=== PATIENT | male | born 1960 | race Caucasian/White ===

== ENCOUNTER 2017-10-16 00:38 | Emergency (ER) | payer OTHER ==
[~2017-10-16] VITALS: Ht 170.2 cm; Wt 82.0 kg
[2017-10-16 00:41] VITALS: BP 196/108; PULSE 114; RESP 16; TEMP 98.2; O2SAT 99
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
--- NOTE | 2017-10-16 01:42 | RADRPT ---
EXAM DATE/TIME: 10/16/2017 01:17 [place] COMPARISON: No previous studies available for comparison. INDICATIONS : Rectal foreign body. MEDICAL HISTORY : None. SURGICAL HISTORY : None. ENCOUNTER: Initial ACUITY: 1 day PAIN SCORE: 10/10 LOCATION: Bilateral abdomen. FINDINGS: The bowel gas pattern is nonobstructive. There is a 11 cm cylindrical radiopaque foreign body overlyi ng the expected location of the rectosigmoid colon consistent with the history of rectal foreign body . CONCLUSION: Retained foreign body overlies the expected location of the rectosigmoid colon. Mikie Escobar MD on October 16, 2017 at 1:39 Board Certified Radiologist. This report was verified electronically.
[2017-10-16 02:37] LABS: BASOPHIL # 0.1 TH/MM3 (0-0.2); EOSINOPHIL # 0.2 TH/MM3 (0-0.4); EOSINOPHIL % 2.1 % (0.0-4.0); HEMOGLOBIN 17.9 GM/DL (13.0-17.0); LYMPH % 25.9 % (9.0-44.0); LYMPHOCYTE # 2.5 TH/MM3 (1.0-4.8); MEAN CELL VOLUME 91.7 FL (80.0-100.0); MEAN CORPUSCULAR HEMOGLOBIN 32.8 PG (27.0-34.0); MEAN CORPUSCULAR HGB CONC 35.8 % (32.0-36.0); MEAN PLATELET VOLUME 8.1 FL (7.0-11.0); MONOCYTE # 0.8 TH/MM3 (0-0.9); PLATELET COUNT 210 TH/MM3 (150-450); RED BLOOD COUNT 5.45 MIL/MM3 (4.50-5.90); WHITE BLOOD COUNT 9.5 TH/MM3 (4.0-11.0)
[2017-10-16 02:45] LABS: PROTHROMBIN TIME - PATIENT 10.1 SEC (9.8-11.6)
[2017-10-16 02:51] LABS: BICARBONATE 24.2 MEQ/L (21.0-32.0); CREATININE 0.78 MG/DL (0.60-1.30)
[2017-10-16 02:57] VITALS: RESP 16; O2SAT 98
[2017-10-16] MEDS ORDERED: METF500T PO (03:08)
[2017-10-16] MEDS ORDERED: SODIUM CHLOR 0.9% 1000 ML INJ 1,000 ML IV SCH (03:30)
[2017-10-16] MEDS ORDERED: SODIUM CHLORID 0.9% 500 ML INJ 500 ML IV ONE (03:30)
[2017-10-16 06:50] VITALS: BP 188/88; PULSE 108; RESP 18; O2SAT 100
--- NOTE | 2017-10-16 10:03 | PD.CONS ---
HPI History of Present Illness This is a 57 year old male who presents to the emergency room with complaints of a foreign body in the rectum which occurred shortly before coming to the ER he complains of rectal pain denies any abdominal pain is any nausea or vomiting usually in good health except for some diabetes which is well controlled he does report having had a colonoscopy in the past PFSH Past Medical History Diabetes Past Surgical History None Coded Allergies: minocycline (Unverified Allergy, Severe, 10/16/17) Uncoded Allergies: MINOCIN (Allergy, Unknown, 05/12/03) NKA (Allergy, Unknown, 05/12/03) Medications Current Medications Sodium Chloride 500 ml @ 500 mls/hr BOLUS ONCE IV Last administered on at 03:41; Start 10/16/17 at 03:30; Stop 10/16/17 at 04:29; Status DC Sodium Chloride 1,000 ml @ 70 mls/hr [id number] IV Last administered on at 03:41; Start 10/16/17 at 03:30 Family History Noncontributory Review of Systems Review of systems Patient denies any headache dizziness blurry vision, denies any chest pain shortness of breath cough fever chills, Denies any palpitations or fatigue denies any polyuria dysuria hematuria, denies any numbness tingling or weakness, denies any skin rash pruritus or jaundice, denies any easy bruising or bleeding tendency, denies any recent change in mood GI Exam Vitals I&O Vital Signs Date Time Temp Pulse Resp B/P (MAP) Pulse Ox O2 Delivery O2 Flow Rate FiO2 10/16/17 08:14 10/16/17 06:50 108 18 188/88 (121) 100 Room Air 10/16/17 02:57 16 98 Room Air 10/16/17 00:41 98.2 114 16 196/108 (137) 99 Room Air I/O 10/15/17 10/15/17 10/15/17 10/16/17 10/16/17 10/16/17 07:00 15:00 23:00 07:00 15:00 23:00 Intake Total 500 ml Balance 500 ml Intake IV Total 500 ml Imaging Last Impressions Abdomen X-Ray 10/16/17 0100 Signed Impressions: Service Date/Time: Monday, October 16, 2017 01:17 - CONCLUSION: Retained foreign body overlies the expected location of the rectosigmoid colon. Mikie Escobar MD Laboratory Test 10/16/17 02:16 White Blood Count 9.5 TH/MM3 Red Blood Count 5.45 MIL/MM3 Hemoglobin 17.9 GM/DL Hematocrit 50.0 % Mean Corpuscular Volume 91.7 FL Mean Corpuscular Hemoglobin 32.8 PG Mean Corpuscular Hemoglobin Concent 35.8 % Red Cell Distribution Width 13.0 % Platelet Count 210 TH/MM3 Mean Platelet Volume 8.1 FL Neutrophils (%) (Auto) 63.0 % Lymphocytes (%) (Auto) 25.9 % Monocytes (%) (Auto) 8.0 % Eosinophils (%) (Auto) 2.1 % Basophils (%) (Auto) 1.0 % Neutrophils # (Auto) 6.0 TH/MM3 Lymphocytes # (Auto) 2.5 TH/MM3 Monocytes # (Auto) 0.8 TH/MM3 Eosinophils # (Auto) 0.2 TH/MM3 Basophils # (Auto) 0.1 TH/MM3 CBC Comment DIFF FINAL Differential Comment Prothrombin Time 10.1 SEC Prothromb Time International Ratio 1.0 RATIO Activated Partial Thromboplast Time 25.5 SEC Blood Urea Nitrogen 11 MG/DL Creatinine 0.78 MG/DL Random Glucose 267 MG/DL Calcium Level 8.0 MG/DL Sodium Level 137 MEQ/L Potassium Level 3.7 MEQ/L Chloride Level 103 MEQ/L Carbon Dioxide Level 24.2 MEQ/L Anion Gap 10 MEQ/L Estimat Glomerular Filtration Rate 103 ML/MIN Physical Examination HEENT: Pupils round and reactive to light; normocephalic; atraumatic; no jaundice. Throat is clear. NECK: Neck is supple, no JVD, no lymphadenopathy. CHEST: Chest is clear to auscultation and percussion. CARDIAC: Regular rate and rhythm with no murmur gallop or rubs. ABDOMEN: Soft, nondistended, nontender; no hepatosplenomegaly; bowel sounds are present in all four quadrants. EXTREMITIES: No clubbing, cyanosis, or edema. SKIN: Normal; no rash; no jaundice. MANAGER VALIDATION: No focal deficits; alert and oriented times three. Assessment and Plan Plan Rectal foreign body we will proceed with a flexible sigmoidoscopy Mk Restrepo MD Oct 16, 2017 10:03
--- NOTE | 2017-10-16 10:06 | PD.PROCEDR ---
GI Procedure PROCEDURE PERFORMED Flexible sigmoidoscopy with foreign body extraction INDICATION FOR PROCEDURE Foreign-body in the rectum PROCEDURE: The procedure, risks and benefits were discussed with Mr. Shine and informed consent was obtained. Anesthesia sedated him with Diprivan. He was placed in the left lateral decubitus position. Flexible Sigmoidoscopy: The Pentax videoscope was introduced through the rectum and advanced to the sigmoid. Retroflexion was performed in the rectum. Colonic prep was good FINDINGS: The scope was advanced through the rectum and it was noted that a form body resides there initially I tried to pull it out with the snare this didn't work and so ultimately I used a Malik and we were able to extract the foreign body then inspection of the rectum and sigmoid afterwards revealed no injury and healthy colon retroflexion did reveal internal hemorrhoids examination otherwise unremarkable ESTIMATED BLOOD LOSS: None SPECIMENS REMOVED: None COMPLICATIONS: None IMPRESSION: Rectal foreign body Internal hemorrhoids PLAN: Patient may be discharged from a GI standpoint High-fiber diet Follow-up as needed Mk Restrepo MD Oct 16, 2017 10:06
[2017-10-16 10:40] VITALS: BP 159/80; PULSE 80; RESP 20; TEMP 98; O2SAT 97
[2017-10-16] MEDS ORDERED: PROPOFOL 200 MG/20 ML AMP IV ONE (12:00)
[2017-10-16] MEDS ORDERED: LIDOCAINE HCL 1% PF 5 ML SYRINGE OTHER ONE (12:00)
[2017-10-16] MEDS ORDERED: CHLORHEXIDINE GLUCONATE 2 % 1 PACK (2 CLOTHS) TOPICAL PRN (12:45)
[2017-10-16] MEDS ORDERED: LACTATED RINGER'S 1000 ML IV PRN (12:45)
[2017-10-16] MEDS ORDERED: POVIDONE IODINE 5% (ANTISEPSIS KIT) 4 APPLICATIONS EACH NARE PRN (12:45)
[2017-10-16] MEDS ORDERED: METOPROLOL TARTRATE 25 MG TAB PO PRN (12:45)
[2017-10-16] MEDS ORDERED: SODIUM CHLORID 0.9% 500 ML IV PRN (12:45)
--- NOTE | 2017-10-17 09:26 | EKG ---
Date Performed: 10/16/2017 Time Performed: 08:28:21 PTAGE: 57 years EKG: SINUS TACHYCARDIA LEFT ATRIAL ENLARGEMENT MODERATE INTRAVENTRICULAR CONDUCTION DELAY ABNORM AL ECG PREVIOUS TRACING : 02/03/2003 23.48 Since prior tracing, sinus rate is faster. DOCTOR: Frank Rae Interpretating Date/Time 10/17/2017 09:25:56
== END 2017-10-16 10:40 | disposition home or self-care (01) ==
LOC: NEPC 00:38
DX: T18.5XXA Foreign body in anus and rectum, initial encounter (principal); K64.8 Other hemorrhoids; R73.03 Prediabetes; R94.31 Abnormal electrocardiogram [ECG] [EKG]; F17.210 Nicotine dependence, cigarettes, uncomplicated; X58.XXXA Exposure to other specified factors, initial encounter; Z88.8 Allergy status to other drugs, medicaments and biological substances; Z79.84 Long term (current) use of oral hypoglycemic drugs
CPT/HCPCS: 45332; 74018; 80048; 85025; 85610; 85730; 93005; 96360; 96361; 99284; J7030; J7040